=== PATIENT | male | born 1965 | race Two or more races ===

== ENCOUNTER 2018-04-12 15:14 | Inpatient (IN) | payer OTHER ==
[2018-04-12] MEDS ORDERED: fentaNYL 100 MCG/2 ML INJ IVP ONE (15:28)
--- NOTE | 2018-04-12 15:40 | EDPHY ---
H & P Stated Complaint: Bilateral knee injury Time Seen by Provider: 04/12/18 15:32 HPI/ROS: CHIEF COMPLAINT: Bilateral knee injury HISTORY OF PRESENT ILLNESS: The patient presents the ED emergently by ambulance. He experienced a injury to his bilateral knees. He reportedly was felt to have a patella dislocation bilaterally by EMS. The patient reportedly developed this while playing kickball. The patient presents the emergency department reporting that his right patella seems to have reduced however he is still having medial displacement of his left patella. He has no prior history of this type of injury. The patient denies significant past medical history. He denies any recent antibiotic usage. The patient denies any acute numbness. He is unable to extend either of his legs at the knee. The patient reports moderate pain in his left leg and moderate spasm in his right thigh. REVIEW OF SYSTEMS: A comprehensive 10 point review of systems is otherwise negative aside from elements mentioned in the history of present illness. Source: Patient Exam Limitations: No limitations - Personal History Current Tetanus/Diphtheria Vaccine: Unsure Current Tetanus Diphtheria and Acellular Pertussis (TDAP): Unsure - Medical/Surgical History Hx Asthma: Yes Hx Chronic Respiratory Disease: No Hx Diabetes: No Hx Cardiac Disease: No Hx Renal Disease: No Hx Cirrhosis: No Hx Alcoholism: No Hx HIV/AIDS: No Hx Splenectomy or Spleen Trauma: No Other PMH: Denies - Social History Smoking Status: Never smoked - Physical Exam Exam: General Appearance: Alert, moderate discomfort Head: Atraumatic Eyes: Pupils equal, round, reactive ENT, Mouth: No hemotympanum, no oral trauma Neck: Nontender, trachea midline Respiratory: No chest wall tender, no subcutaneous air, lungs clear bilaterally Cardiovascular: Regular rate and rhythm Abdomen: Abdomen is soft and nontender, pelvis stable Skin: No lacerations, No abrasion Back: No midline T/L/S pain Extremities: The patient did have medial subluxation of his left patella on exam. I extended the leg and easily relocated into the trochlear groove. I am unable to palpate an intact patella tendon in either leg. The patient is unable to extend either leg at the knee Neurological: Normal sensory exam, normal motor function aside from inability to extend legs at the knee bilaterally Constitutional: Initial Vital Signs O2 Sat (%) 100 04/12/18 15:10 O2 Delivery Mode Nasal Cannula O2 (L/minute) 2 Allergies/Adverse Reactions: No Known Allergies Allergy (Verified 04/12/18 16:55) Home Medications: Medication Instructions Recorded Albuterol [Proventil Inhaler HFA 2 puffs IH Q4 PRN 04/12/18 (*)] Ibuprofen [Motrin (*)] 400 - 800 mg PO DAILY PRN 04/12/18 Medical Decision Making - Diagnostics Imaging Results: Imaging Impressions Knee X-Ray 04/12/18 16:08 Impression: Patella diya bilaterally with soft tissue attenuation in the region of the proximal patellar tendon suggesting patellar tendon tear. ED Course/Re-evaluation: The patient's legs have been anatomically aligned. He has clinical evidence of bilateral patella tendon disruptions. The patient was placed in bilateral knee immobilizers. The patient last ate at 1:00 p.m.. The patient received 100 mcg of fentanyl intravenously. Consultation was made with Dr. Sharif Tsai from Orthopedic surgery at 3:40 p.m. The patient will be admitted to the hospital this evening. He will undergo operative repair with Dr. Tsai in the morning. X-rays demonstrate no evidence of an obvious patella fracture. He does have evidence of patella diya bilaterally radiographically. Differential Diagnosis: Differential diagnosis considered includes femur fracture, tibial plateau fracture, patellar fracture, patellar dislocation, patella tendon disruption - Data Points Medications Given: Discontinued Medications Fentanyl (Sublimaze) 100 mcg IVP EDNOW ONE Stop: 04/12/18 15:29 Last Admin: 04/12/18 15:31 Dose: 100 mcg Departure - Departure Disposition: [facility] Inpatient Acute Clinical Impression: Patellar tendon rupture Qualifiers: Encounter type: initial encounter Laterality: right Qualified Code(s): S86.811A - Strain of other muscle(s) and tendon(s) at lower leg level, right leg , initial encounter Condition: Good
[2018-04-12] MEDS ORDERED: ONDANSETRON 4 MG/2 ML VIAL IVP PRN (17:40)
[2018-04-12] MEDS ORDERED: ALBUTEROL 60 PUFFS/8 GM MDI IH PRN (17:45)
[2018-04-12] MEDS: ACETAMINOPHEN 325 MG TAB PO PRN (17:52)
[2018-04-12] MEDS: oxyCODONE IR 5 MG TAB PO PRN ×2 (17:54→23:06)
--- NOTE | 2018-04-12 18:11 | GHP ---
DATE OF ADMISSION: 04/12/2018 PRIMARY CARE PHYSICIAN: LONNIE Laws. CHIEF COMPLAINT: Bilateral knee pain. 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 He was playi ng at a work green party kickball game when he was running forward toward the base and both knees buckled u nderneath him. He complained of immediate pain, inability to ambulate. He was brought to the emerge ncy department for further evaluation. He had slight medial displacement of his left patella which w as reduced in the emergency department. He has no prior history of knee pain or injury. 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 He denies any recent fluoroquinolone usage. He denies any other associ ated complaints currently. He is unable to ambulate or lift his legs from the bed. PAST MEDICAL HISTORY: Asthma. PAST SURGICAL HISTORY: Denies. MEDICATIONS: Albuterol and ibuprofen. ALLERGIES: No known drug allergies. SOCIAL: Denies any tobacco. Minimal alcohol. REVIEW OF SYSTEMS: Negative for current chest pain, shortness of breath, belly pain, back pain, numb ness, tingling, or other joint-related complaints. OBJECTIVE: GENERAL: This is a healthy gentleman pleasant and cooperative with the examination. SANTIAGO NT: Normocephalic, atraumatic. EXTREMITIES: Bilateral upper extremities are unremarkable. Bilater al lower extremities are in straight leg immobilizers which are open. He has a slight abrasion acros s the left tibia which appears chronic. There is swelling to both knees and patella diya bilaterally . He has a palpable defect over the inferior pole of the patella on both knees consistent with herrera lar tendon rupture. He is unable to perform a straight leg raise on either lower extremity. Sensati on is otherwise intact to light touch throughout. He has intact plantar flexion, dorsiflexion, EHL f unction. IMAGING: Radiographs demonstrate patella diya with no fracture. ASSESSMENT: Bilateral patellar tendon ruptures. TREATMENT PLAN: Given his recent food intake, we will proceed with operative intervention tomorrow o n an elective basis. He will be admitted for pain control and management. I have outlined the surgi chris procedure, risks, benefits, and alternatives. He wishes to proceed. Written consent will be sig kalen and placed in the patient's chart. He understands that he will be under restrictions for a minim um of 6 weeks with braces to both knees. /[id number]/MODL
[2018-04-12] MEDS ORDERED: CYCLOBENZAPRINE 10 MG TAB PO PRN (18:33)
[2018-04-12] MEDS: CYCLOBENZAPRINE 10 MG TAB PO PRN (19:02)
[2018-04-12] MEDS: DIAZEPAM 5 MG TAB PO PRN (23:31)
[2018-04-13] MEDS: CYCLOBENZAPRINE 10 MG TAB PO PRN ×2 (04:14→18:50)
[2018-04-13] MEDS: DIAZEPAM 5 MG TAB PO PRN ×3 (05:25→21:28)
[2018-04-13] MEDS: ACETAMINOPHEN 325 MG TAB PO PRN ×2 (09:09→18:38)
--- NOTE | 2018-04-13 13:50 | ASMTCMCOM ---
CM Note CM Note Notes: Pt to OR today for bilat knees after injury during kickball game. Therapies to eval when appropriate. D/c plan is TBD. Date Signed: 04/13/2018 01:47 PM Electronically Signed By:TAMEKA Blankenship
[2018-04-13] MEDS ORDERED: BUPIVACAINE/EPI 0.5% 30 ML SDV ONE (15:17)
[2018-04-13] MEDS ORDERED: POLYMYXIN B SULFATE 500,000 UNIT/10 ML SYR IRR ONE (15:18)
[2018-04-13] MEDS ORDERED: BACITRACIN 50,000 UNITS/10 ML SYR IRR ONE (15:18)
[2018-04-13] MEDS ORDERED: LR 1,000 ML IV ONE (15:18)
[2018-04-13] MEDS ORDERED: ceFAZolin 2 GM/DEXTROSE 100 ML IV ONE (15:45)
[2018-04-13] MEDS ORDERED: MIDAZOLAM 2 MG/2 ML VIAL ONE (15:51)
[2018-04-13] MEDS ORDERED: MIDAZOLAM 2 MG/2 ML VIAL IVP ONE (15:52)
[2018-04-13] MEDS ORDERED: ALBUTEROL 3 ML DEYVIAL IH PRN (15:53)
[2018-04-13] MEDS ORDERED: NALOXONE HCL 0.4 MG/ML INJ IVP PRN (15:53)
[2018-04-13] MEDS ORDERED: ONDANSETRON 4 MG/2 ML VIAL IVP PRN (15:53)
[2018-04-13] MEDS ORDERED: DEXAMETHASONE 4 MG/ML VIAL IVP PRN (15:53)
--- NOTE | 2018-04-13 15:54 | PDANEPAE ---
ANE History of Present Illness Bilateral Patellar Tendon ANE Past Medical History - Cardiovascular History Hx Hypertension: No Hx Arrhythmias: No - Pulmonary History Hx COPD: No Hx Asthma/Reactive Airway Disease: No Hx Oxygen in Use at Home: No Hx Sleep Apnea: No Sleep Apnea Screening Result - Last Documented: Negative - Endocrine History Hx Diabetes: No - Chronic Pain History Chronic Pain: No ANE Review of Systems Review of Systems: ANE Patient History - Allergies Allergies/Adverse Reactions: No Known Allergies Allergy (Verified 04/12/18 16:55) - Home Medications Home Medications: Albuterol [Proventil Inhaler HFA (*)] 2 puffs IH Q4 PRN 04/12/18 [Last Taken Unknown] Ibuprofen [Motrin (*)] 400 - 800 mg PO DAILY PRN 04/12/18 [Last Taken 04/10/18] - NPO status NPO Since - Liquids (Date): 04/13/18 NPO Since - Liquids (Time): 08:00 NPO Since - Solids (Date): 04/13/18 NPO Since - Solids (Time): 08:00 - Smoking Hx Smoking Status: Never smoked ANE Labs/Vital Signs - Vital Signs Blood Pressure: 123/81 Heart Rate: 79 Respiratory Rate: 16 O2 Sat (%): 95 Height: 185.42 cm Weight: 88.451 kg ANE Physical Exam - Airway Neck exam: FROM Mallampati Score: Class 2 - Pulmonary Pulmonary: clear to auscultation - Cardiovascular Cardiovascular: regular rate and rhythym - ASA Status ASA Status: I ANE Anesthesia Plan Anesthesia Plan: general endotracheal anesthesia
[2018-04-13] MEDS ORDERED: PROPOFOL 200 MG/20 ML VIAL ONE ×2 (16:00→16:31)
[2018-04-13] MEDS ORDERED: fentaNYL 100 MCG/2 ML INJ ONE ×4 (16:00→18:08)
[2018-04-13] MEDS ORDERED: ROCURONIUM 50 MG/5 ML VIAL ONE (16:01)
[2018-04-13] MEDS ORDERED: DEXAMETHASONE 4 MG/ML VIAL ONE ×2 (16:07)
--- NOTE | 2018-04-13 18:06 | POSTANESTH ---
Post Anesthetic Evaluation Cardiovascular Status: Normal, Stable Respiratory Status: Normal, Stable Level of Consciousness/Mental Status: Can Participate in Eval Pain Control: Adequate, Prn Tx Ordered Nausea/Vomiting Control: Adequate, Prn Tx Ordered Complications Possibly Related to Anesthesia: None Noted
[2018-04-13] MEDS: HYDROmorphONE/DILAUDID 1 MG/ML INJ IVP PRN ×3 (18:07→19:14)
[2018-04-13] MEDS: fentaNYL 100 MCG/2 ML INJ IVP PRN ×3 (18:07→19:15)
--- NOTE | 2018-04-13 18:07 | POSTOPPROG ---
Post Op Note Date of Operation: 04/13/18 Surgeon: Sharif Tsai Hydraulic Tester: gail Anesthesia: GET(General Endotracheal) Pre-op Diagnosis: jeana patellar rupture Post-op Diagnosis: same Indication: same Procedure: jeana patellar repair Inf/Abcess present in the surg proc area at time of surgery?: No Depth: Deep Incisional (Fascial) EBL: 50-100
[2018-04-13] MEDS ORDERED: HYDROmorphONE/DILAUDID 1 MG/ML INJ ONE (18:08)
[2018-04-13] MEDS ORDERED: oxyCODONE IR 5 MG TAB ONE (18:38)
[2018-04-13] MEDS ORDERED: ACETAMINOPHEN 325 MG TAB ONE (18:38)
[2018-04-13] MEDS: oxyCODONE IR 5 MG TAB PO PRN (18:39)
--- NOTE | 2018-04-13 22:27 | PDMN ---
Medical Necessity Medical necessity: Pt meets inpt criteria per MD order and [facility] S-[id number], Knee: Patella Reconstruction or Realignment. Est LOS>2MN for management of bilateral patellar tendon ruptures requiring bilateral patellar repair/realignment, post- op care, pain management, IV valium for muscle spasms, PT eval pending.
[2018-04-13] MEDS: ceFAZolin 2 GM/DEXTROSE 100 ML IV SCH (23:46)
[2018-04-14] MEDS: oxyCODONE IR 5 MG TAB PO PRN ×5 (03:53→21:17)
[2018-04-14] MEDS: CYCLOBENZAPRINE 10 MG TAB PO PRN ×3 (03:53→23:54)
[2018-04-14] MEDS: DIAZEPAM 5 MG TAB PO PRN ×4 (05:46→23:54)
[2018-04-14] MEDS: ceFAZolin 2 GM/DEXTROSE 100 ML IV SCH ×2 (08:23→16:43)
--- NOTE | 2018-04-14 08:55 | PDIAF ---
- Diagnosis Diagnosis: jeana patellar tendon rupture Code Status: Full Code - Medication Management Discharge Medications: Medications to Continue on Transfer Albuterol [Proventil Inhaler HFA (*)] 2 puffs IH Q4 PRN 04/12/18 [Last Taken Unknown] Ibuprofen [Motrin (*)] 400 - 800 mg PO DAILY PRN 04/12/18 [Last Taken 04/10/18] Discharge Medications: Refer to the Discharge Home Medication list for PRN reason. - Orders Services needed: Physical Therapy, Occupational Therapy Diet Recommendation: no restrictions on diet Diet Texture: Regular Texture Diet Activity/Weight Bearing Restrictions: wbat with braces locked in extension. NO RANGE OF MOTION. use walker. encourage ankle and calf range of motion. aspirin 325 mg po daily. f/u at two weeks. seek attn for increasing pain, redness, swelling or discharge. keep dressing clean, dry and intact Additional Instructions: wbat with braces locked in extension NO RANGE OF MOTION use walker encourage ankle and calf range of motion aspirin 325 mg po daily f/u at two weeks seek attn for increasing pain, redness, swelling or discharge keep dressing clean, dry and intact - Follow Up Care Current Providers and Referrals: Patient,NotPresent [Unknown] - As per Instructions
--- NOTE | 2018-04-14 08:57 | PDIAF ---
- Diagnosis Diagnosis: jeana patellar tendon rupture Code Status: Full Code - Medication Management Discharge Medications: Medications to Continue on Transfer Albuterol [Proventil Inhaler HFA (*)] 2 puffs IH Q4 PRN 04/12/18 [Last Taken Unknown] Aspirin EC [Aspirin EC 325 mg (*)] 325 mg PO DAILY tab 04/14/18 [Last Taken Unknown] Cyclobenzaprine [Flexeril 10 MG (*)] 10 mg PO Q8H PRN #30 tab 04/14/18 [Last Taken Unknown] oxyCODONE IR [Oxycodone Ir (*)] 5 - 10 mg PO Q4HRS PRN #70 tab 04/14/18 [Last Taken Unknown] Discharge Medications: Refer to the Discharge Home Medication list for PRN reason. - Orders Services needed: Physical Therapy, Occupational Therapy Diet Recommendation: no restrictions on diet Diet Texture: Regular Texture Diet Activity/Weight Bearing Restrictions: wbat with braces locked in extension. NO RANGE OF MOTION. use walker. encourage ankle and calf range of motion. aspirin 325 mg po daily. f/u at two weeks. seek attn for increasing pain, redness, swelling or discharge. keep dressing clean, dry and intact Additional Instructions: wbat with braces locked in extension NO RANGE OF MOTION use walker encourage ankle and calf range of motion aspirin 325 mg po daily f/u at two weeks seek attn for increasing pain, redness, swelling or discharge keep dressing clean, dry and intact - Follow Up Care Current Providers and Referrals: Patient,NotPresent [Unknown] - As per Instructions Sharif Tsai MD [Medical Doctor] -
--- NOTE | 2018-04-14 08:58 | SOAPPROG ---
SOAP Progress Note Assessment/Plan: Assessment: s/p repair jeana patellar tendon Plan:mobilize with pt/ot assess for d/c when cleared pain control dvt precautions reviewed 04/14/18 08:57 Subjective: pain no cp or sob Objective: Vital Signs Temp Pulse Resp BP Pulse Ox 36.8 C 60 18 120/74 98 04/14/18 08:13 04/14/18 08:13 04/14/18 08:13 04/14/18 08:13 04/14/18 08:13 04/13/18 04/14/18 04/15/18 05:59 05:59 05:59 Intake Total 2240 1400 350 Output Total 950 1500 300 Balance 1290 -100 50 dressing intact intact pf,df,ehl toes warm and pink neg homans jeana intact active digital rom ICD10 Worksheet Patient Problems: Problems Problem Status Onset Patellar tendon rupture Acute
[2018-04-14] MEDS: ASPIRIN EC 325 MG TAB PO SCH (09:50)
--- NOTE | 2018-04-14 15:15 | ASMTCMCOM ---
CM Note CM Note Notes: 04/14/2018 Case Management Note Met w/pt to discuss discharge plan. PT is recommending inpatient rehab. Notified Gillian. Per Gillian, pt insurance will not authorize before Tuesday. Pt unsure if he wants to remain in the hospital thru the weekend. Pt has a friend making a ramp so pt can enter home. Faxed referral to [facility] for RN and PT. Pt has supportive family and co workers to prepare meals and transport pt to [facility]. Referred pt questions re: workman comp process to pt employer HR department and [facility] financial counseling. Case Management d/c poc: to be determined. Case Management to follow. Date Signed: 04/14/2018 03:15 PM Electronically Signed By:Tabitha Castro RN
[2018-04-15] MEDS: oxyCODONE IR 5 MG TAB PO PRN ×4 (04:34→17:10)
[2018-04-15] MEDS: DIAZEPAM 5 MG TAB PO PRN ×3 (07:11→19:30)
--- NOTE | 2018-04-15 08:01 | SOAPPROG ---
SOAP Progress Note Assessment/Plan: Assessment: s/p repair jeana patellar tendon Plan:mobilize with pt/ot assess for d/c when cleared pain control dvt precautions reviewed 04/14/18 08:57 Subjective: still with mild pain no cp or sob Objective: Vital Signs Temp Pulse Resp BP Pulse Ox 37.2 C 84 16 118/70 93 04/15/18 07:58 04/15/18 07:58 04/15/18 07:58 04/15/18 07:58 04/15/18 07:58 04/14/18 04/15/18 04/16/18 05:59 05:59 05:59 Intake Total 1400 2400 Output Total 1500 2425 Balance -100 -25 dressing intact intact pf,df,ehl toes warm and pink jeana neg homans ICD10 Worksheet Patient Problems: Problems Problem Status Onset Patellar tendon rupture Acute
[2018-04-15] MEDS: ASPIRIN EC 325 MG TAB PO SCH (08:52)
--- NOTE | 2018-04-15 13:51 | ASMTCMCOM ---
CM Note CM Note Notes: Pt wants to go home, likely ready tomorrow his friends building ramp and getting his bed raised. Carissa with [facility] updated. D/c plan of care: Home with [facility] and family support. Date Signed: 04/15/2018 01:51 PM Electronically Signed By:TAMEKA Blankenship
[2018-04-15] MEDS: ACETAMINOPHEN 325 MG TAB PO PRN (17:17)
[2018-04-15] MEDS: CYCLOBENZAPRINE 10 MG TAB PO PRN (19:30)
[2018-04-16] MEDS: DIAZEPAM 5 MG TAB PO PRN ×2 (01:20→08:28)
[2018-04-16] MEDS: oxyCODONE IR 5 MG TAB PO PRN ×4 (03:37→16:56)
[2018-04-16] MEDS: CYCLOBENZAPRINE 10 MG TAB PO PRN (03:37)
[2018-04-16] MEDS: ASPIRIN EC 325 MG TAB PO SCH (08:28)
[2018-04-16 08:38] VITALS: BP 121/76
--- NOTE | 2018-04-16 09:16 | ASMTDCNOTE ---
Case Management Discharge Discharge Order Complete? Answers: Yes Patient to Obtain Answers: via Family Medications Transportation Arranged Answers: Family/Friends Transport will Pick (Date 04/16/2018 11:00 AM & Time) Faxed Final Orders Answers: Yes Notes: [facility] Family Notified Answers: Yes Notes: to transport Discharge Comments Notes: Patient has been discharged home with [facility]. Date Signed: 04/16/2018 09:16 AM Electronically Signed By:Linda Romano LCSW
--- NOTE | 2018-04-16 09:18 | ASMTLACE ---
LACE Length of stay for Answers: 4-6 days current admission Comorbidities - select Answers: Other Notes: Asthma, Bilat Ruptured all that apply patella tendon # of Emergency department Answers: 1-2 visits in the last 6 months Score: 6 Date Signed: 04/16/2018 09:17 AM Electronically Signed By:Linda Romano LCSW
--- NOTE | 2018-04-16 09:24 | ASDISCHSUM ---
Discharge Information Plan Status:Home with Home Health Medically Cleared to Leave:04/16/2018 Discharge Date:04/16/2018 CM D/C Disposition:Home Health Service ADT D/C Disposition:Home Health Service Projected Discharge Date:04/16/2018 11:00 AM Transportation at D/C:Family Discharge Delay Reason: Follow-Up Date:04/16/2018 11:00 AM Discharge Slot:1 - 8:01 am - 12:00 noon Final Diagnosis:Bilat patella tendon rupture Placement Information Referral Type:*Home Health Care Services Referral ID:[id number] Provider Name:[facility] Address 1:[address] [address] Address 2: City:[place] Selection Factors: State:[place] Patient Contact Information Contact Name:EUGENIOQUYENLALO Relationship:Life Partner Address: Work Phone: City: [facility] Phone: State/Zip Code: Email: Financial Information Financial Class:HMO and PPO Plans Primary Plan Desc:[employer] Primary Plan Number:[id number] Secondary Plan Desc: Secondary Plan Number: Assessment Information LACE LACE Length of stay for Answers: 4-6 days current admission Comorbidities - select Answers: Other Notes: Asthma, Bilat Ruptured all that apply patella tendon # of Emergency department Answers: 1-2 visits in the last 6 months Score: 6 Date Signed: 04/16/2018 09:17 AM Electronically Signed By:Linda Romano LCSW [facility] Progress Note CM Note CM Note Notes: Pt to OR today for bilat knees after injury during kickball game. Therapies to eval when appropriate. D/c plan is TBD. Date Signed: 04/13/2018 01:47 PM Electronically Signed By:TAMEKA Blankenship [facility] CM Progress Note CM Note CM Note Notes: 04/14/2018 Case Management Note Met w/pt to discuss discharge plan. PT is recommending inpatient rehab. Notified Gillian. Per Gillian, pt insurance will not authorize before Tuesday. Pt unsure if he wants to remain in the hospital thru the weekend. Pt has a friend making a ramp so pt can enter home. Faxed referral to [facility] for RN and PT. Pt has supportive family and co workers to prepare meals and transport pt to [facility]. Referred pt questions re: workman comp process to pt employer HR department and [facility] financial counseling. Case Management d/c poc: to be determined. Case Management to follow. Date Signed: 04/14/2018 03:15 PM Electronically Signed By:Tabitha Castro RN [facility] CM Progress Note CM Note CM Note Notes: Pt wants to go home, likely ready tomorrow his friends building ramp and getting his bed raised. Carissa with [facility] updated. D/c plan of care: Home with [facility] and family support. Date Signed: 04/15/2018 01:51 PM Electronically Signed By:TAMEKA Blankenship Case Management Discharge Plan Note Case Management Discharge Discharge Order Complete? Answers: Yes Patient to Obtain Answers: via Family Medications Transportation Arranged Answers: Family/Friends Transport will Pick (Date 04/16/2018 11:00 AM & Time) Faxed Final Orders Answers: Yes Notes: [facility] Notified Answers: Yes Notes: to transport Discharge Comments Notes: Patient has been discharged home with [facility]. Date Signed: 04/16/2018 09:16 AM Electronically Signed By:Linda Romano LCSW Intervention Information
[2018-04-16] MEDS: ACETAMINOPHEN 325 MG TAB PO PRN (12:53)
--- NOTE | 2018-04-16 17:07 | ASMTCMCOM ---
CM Note CM Note Notes: brought in Workman's Comp info so we will need to determine HC through Work Com on Tuesday. Date Signed: 04/16/2018 05:06 PM Electronically Signed By:Linda Romano LCSW
--- NOTE | 2018-04-17 10:05 | ASMTCMCOM ---
CM Note CM Note Notes: This CM contacted [facility] and was told not to go through [facility], but to send patient info to them-[facility][1] and they would set up HC. I faxed patient info to both Arlene Rodriguez and Michaela Limon at [facility][1]: [phone] & [phone] and asked that they contact this CM when they knew what HC agency they would contract to do this job. Contact made to [facility] to cancel and contact made to patient. Date Signed: 04/17/2018 10:04 AM Electronically Signed By:Linda Romano LCSW
--- NOTE | 2018-04-17 14:08 | ASMTCMCOM ---
CM Note CM Note Notes: [facility] called to say that they were going to deny this claim and we would need to go through patient's [employer] for HC. Contacted [facility] and let them know that we still needed them to admit patient under their care. Faxed over Orders, Meds and last Therapy Notes. They felt that it might be possible to see him yet today. Spoke with patient about change and that [facility] would be contacting him. Date Signed: 04/17/2018 02:07 PM Electronically Signed By:Linda Romano LCSW
--- NOTE | 2018-04-18 17:47 | ASMTCMCOM ---
CM Note CM Note Notes: [facility] unable to admit with a letter from [employer] saying that they were denying the case. Work[employer] saying that it might take a week to come up with a letter. Patient's HR, Lisbeth now involved and contacted this CM. Lisbeth has obtained a Work Comp letter and would like my assist in finding another HC agency. This CM contacted [facility] and faxed patient info incl Work Comp letter. It sounded as though they would be able to begin care Tuesday but they were not able to confirm that by the end of today. I contacted Lisbeth, patient's HR and gave her [facility]'s phone# to follow up on Tuesday. Lisbeth to contact the patient. Date Signed: 04/18/2018 05:46 PM Electronically Signed By:Linda Romano LCSW
--- NOTE | 2018-04-23 14:46 | GDS ---
ADMISSION DIAGNOSES: Bilateral patellar tendon disruption. DISCHARGE DIAGNOSIS: Bilateral patellar tendon disruption. PROCEDURE: Bilateral patellar tendon repair. OPERATIVE INDICATIONS: The patient is a 53-year-old gentleman who was at a work function playing [employer] ball when he had both patellar tendons rupture spontaneously. He was admitted and set up for operat ridge intervention. HOSPITAL COURSE: Patient had a protracted course given immobility and therapy requirements. At the t rosalina of discharge, he is tolerating an oral diet, pain is well controlled on oral medicines. He is voi ding without difficulty. His dressings are clean, dry, and intact. Negative Homans bilaterally. He re montana in a straight leg immobilizer. DISCHARGE ACTIVITIES: Weightbearing as tolerated using the straight leg immobilizer. No range of mot ion for the first 2 weeks. Ankle and calf range of motion when at rest. DISCHARGE MEDICATIONS: Oxycodone 5 mg 1 to 2 every 4 hours p.r.n. pain, aspirin 325 mg p.o. daily. FOLLOWUP: He will followup in 2 weeks. /[id number]/MODL
--- NOTE | 2018-04-23 15:41 | GOP ---
DATE OF OPERATION: 04/13/2018 SURGEON: Sharif Tsai MD CEO: Dawson Murillo, BUSINESS SYSTEMS ADMINISTRATOR, DIABETES TERRITORY MANAGER, regional vice president surgical sales was medical necessity for the entirety of t he case. PREOPERATIVE DIAGNOSIS: Bilateral patellar tendon disruption. POSTOPERATIVE DIAGNOSIS: Bilateral patellar tendon disruption. PROCEDURE PERFORMED: FINDINGS: SPECIMENS: None. INDICATIONS: The patient is a 53-year-old gentleman who was involved in a work related kickball game . He was running toward a base with a kickball when he felt a pop and pain across both patella tendo ns. He was unable to ambulate. He was brought to [facility] with clinical diagnosis of bilateral patellar tendon disruptions. He was admitted with knee immobilizers to both sides, and set up for elective repair. DESCRIPTION OF PROCEDURE: Patient was identified in the preanesthesia area. Both knees were clearly demarcated as operative sites with an indelible marker. He was given 2 g of Ancef intravenously in route to the operative suite. In the OR, general endotracheal anesthesia was administered. Attention was turned to the bilateral lower extremities concomitantly. Both lower extremities had to urniquets applied. Both lower extremities were sterilely prepped and draped in usual fashion. Attention was first turned to the right lower extremity. Appropriate time-out procedure was carried out. The limb was exsanguinated with an Esmarch bandage. Tourniquet inflated to 275 mmHg. An anterior incision was made over the patellar tendon and inferior pole of the patella. This was ca rried sharply through the skin and subcutaneous tissue. There was gross disruption of the patella te ndon from the inferior pole of the patella, as well as medial and lateral retinacular injuries. The inferior pole of the patella was then gently debrided and 3 drill holes made into the patella existin g the dorsal surface. The patella was sutured using #2 FiberWire suture in a running locking suture. These ends were then crossed with an accessory FiberTape suture through the patellar tendon and sec ured with the knee in full extension. The medial and lateral retinacula were closed using 0 Vicryl s utures in extension. The overlying soft tissue closed using 0 Vicryl, 2-0 Monocryl, and rhoda. Th e margins were instilled at the skin with Marcaine with epinephrine, a total of 15 cc for each knee. A sterile dressing was then applied. Tourniquet deflated at 37 minutes. Attention was then turned to the left knee. Additional time-out procedure was carried out. In a sim ilar fashion in sequence to the right knee, the knee was approached with an anterior incision. Wheeler lar tendon was reapproximated using 3 drill holes through the distal pole of the patella and with a F iberTape fiber suture. Sterile dressing was applied to the left leg. The patient's tourniquet time for the left side was 38 minutes. COMPLICATIONS: None. IMPLANTS: As above. DISPOSITION: To the recovery room and then the floor. He is weightbearing as tolerated with the bra brady locked in extension. No range of motion for the first 2 weeks. /[id number]/MODL
== END 2018-04-16 17:37 | disposition home health service (06) | DRG 502 ==
LOC: EDUNIT# → F3N 17:32 → OBSVTOIN 17:45
PROVIDERS: ADMIT Orthopaedic Surgery; ATTEND Orthopaedic Surgery
DX: S86.812A Strain of other muscle(s) and tendon(s) at lower leg level, left leg, initial encounter (principal); S86.811A Strain of other muscle(s) and tendon(s) at lower leg level, right leg, initial encounter; S83.002A Unspecified subluxation of left patella, initial encounter; Y93.6A Activity, physical games generally associated with school recess, summer camp and children
CPT/HCPCS: 96374; 97116-GP; 97162-GP; 97166-GO; 97530-GO; 97530-GP; 97535-GO; J0690; J1100; J1170; J2250; J2270; J2704; J3010; L1830